=== PATIENT | male | born 1955 | race Two or more races ===

== ENCOUNTER 2018-04-08 21:32 | Inpatient (IN) | payer MEDICAID, OTHER ==
[~2018-04-08] VITALS: Ht 162.6 cm; Wt 48.7 kg
[2018-04-08 22:56] LABS: Hematocrit 46.7 % (41.0-53.0); Hemoglobin 15.5 g/dL (13.5-17.5); Mean Corpuscular Hgb Conc. 33.2 g/dL (32.0-36.0); Mean Corpuscular Volume 90.2 fL (80.0-100.0); Platelet Count (auto) 143 10^3/uL (140-450); Red Blood Cells 5.18 10^6/uL (4.5-5.90); Red Cell Distribution Width 14.3 % (11.8-14.3); White Blood Cell 15.6 10^3/uL (4.4-10.8)
[2018-04-08 22:59] LABS: Basophils % (manual) 0 (0.0-2.0); Blast Cells 0; Eosinophils % (manual) 0 (0-7); Metamyelocytes % 0; Myelocytes % 0; Promyelocytes % 0; Reactive Lymphocytes 0
[2018-04-08 23:00] LABS: Alanine Aminotransferase 123 U/L (16-61); Albumin 3.4 g/dL (3.4-5.0); Alkaline Phosphatase 375 U/L (45-117); Amylase 65 U/L (25-115); Anion Gap 8 (5-15); Aspartate Aminotransferase 154 U/L (15-37); BUN/Creatinine Ratio 9.4; Bilirubin, Total 5.2 mg/dL (0.2-1.0); Blood Urea Nitrogen 9 mg/dL (7-18); Carbon Dioxide 28 mmol/L (21-32); Chloride 105 mmol/L (98-107); GFR African American 101 mL/min; GFR Non-African American 84 mL/min; Glucose 123 mg/dL (74-106); Lipase 48 U/L (73-393); Potassium 3.8 mmol/L (3.5-5.1); Sodium 141 mmol/L (136-145); Total Protein 7.8 g/dL (6.4-8.2)
[2018-04-08 23:21] LABS: Lactic Acid w/Reflex 3.4 mmol/L (0.4-2.0)
[2018-04-08 23:51] LABS: Band Neutrophils % (manual) 13; Lymphocytes % (manual) 6 (10.0-50.0); Monocytes % (manual) 3 (0-12)
[2018-04-09] MEDS ORDERED: metroNIDAZOLE 500MG/100ML 100 ML IV ONE (03:00)
[2018-04-09] MEDS ORDERED: cefTRIAXone 1GM/10ml IVPUSH 10 ML IV ONE (03:00)
[2018-04-09] MEDS ORDERED: SODIUM CHLORIDE 0.9% 1,000 ML IV ONE ×2 (03:00→05:00)
[2018-04-09 08:33] LABS: Urine Bacteria FEW /hpf (None Seen); Urine Blood 2+ /uL (Negative); Urine Specific Gravity 1.021 (1.001-1.035); Urine WBC 2 /hpf (0 - 3)
[2018-04-09 08:39] LABS: Albumin 2.8 g/dL (3.4-5.0); BUN/Creatinine Ratio 13.6; Bilirubin, Total 4.9 mg/dL (0.2-1.0); Calcium 7.8 mg/dL (8.5-10.1); Potassium 3.7 mmol/L (3.5-5.1); Total Protein 6.6 g/dL (6.4-8.2)
[2018-04-09] MEDS: PANTOPRAZOLE 40 MG/10 ML VIAL IV SCH (09:42)
[2018-04-09] MEDS ORDERED: METH10T PO (10:13)
[2018-04-09] MEDS: metroNIDAZOLE 500MG/100ML 100 ML IV SCH ×2 (11:47→20:11)
[2018-04-09 13:00] VITALS: BP 108/44
[2018-04-09] MEDS: MORPHINE SULF INJ 2 MG/ML SYRINGE 1ML IV PRN (13:59)
[2018-04-09] MEDS: HYDROcodone-ACET 5/325MG TAB PO PRN ×2 (15:45→20:17)
[2018-04-09] MEDS: ONDANSETRON HCL 4 MG/2 ML VIAL IV PRN ×2 (15:45→20:17)
[2018-04-09 17:26] VITALS: BP 133/65
[2018-04-09] MEDS: cefTRIAXone 1GM/10ml IVPUSH 10 ML IV SCH (21:46)
[2018-04-09 22:00] VITALS: BP 140/68
[2018-04-10] MEDS: ONDANSETRON HCL 4 MG/2 ML VIAL IV PRN ×4 (01:03→23:44)
[2018-04-10] MEDS: HYDROcodone-ACET 5/325MG TAB PO PRN ×3 (01:05→11:37)
[2018-04-10] MEDS: metroNIDAZOLE 500MG/100ML 100 ML IV SCH ×3 (02:50→18:45)
[2018-04-10 05:44] VITALS: BP 128/82
[2018-04-10 08:15] LABS: Basophils # (auto) 0.1 uL; Basophils % (auto) 0.9 % (0.0-2.0); Eosinophils # (auto) 0 uL; Eosinophils % (auto) 0.3 % (0.0-7.0); Hematocrit 42.7 % (41.0-53.0); Hemoglobin 14.3 g/dL (13.5-17.5); Lymphocytes # (auto) 0.3 uL; Lymphocytes % (auto) 3.4 % (10.0-50.0); Mean Corpuscular Hemoglobin 30.3 pg (28.0-32.0); Mean Corpuscular Hgb Conc. 33.4 g/dL (32.0-36.0); Mean Corpuscular Volume 90.6 fL (80.0-100.0); Monocytes # (auto) 0.7 uL; Monocytes % (auto) 9.2 % (0.0-12.0); Neutrophils % (auto) 86.2 % (37.0-80.0); Nucleated Red Blood Cells % 0.1 %; Platelet Count (auto) 128 10^3/uL (140-450); Red Blood Cells 4.72 10^6/uL (4.5-5.90); Red Cell Distribution Width 14.3 % (11.8-14.3); White Blood Cell 8.1 10^3/uL (4.4-10.8)
[2018-04-10 08:28] LABS: INR 1.07 (0.9-1.15); Partial Thromboplastin Time 25.9 sec (23.78-33.04); Prothrombin Time 11.4 sec (9.27-12.13)
[2018-04-10 08:42] LABS: Albumin 2.9 g/dL (3.4-5.0); BUN/Creatinine Ratio 17.8; Calcium 8.2 mg/dL (8.5-10.1); Potassium 3.5 mmol/L (3.5-5.1); Total Protein 6.8 g/dL (6.4-8.2)
[2018-04-10 08:43] LABS: Albumin 2.9 g/dL (3.4-5.0); Bilirubin, Direct 4.1 mg/dL (0-0.2); Total Protein 6.8 g/dL (6.4-8.2)
[2018-04-10 09:00] VITALS: BP 119/66
[2018-04-10] MEDS: PANTOPRAZOLE 40 MG/10 ML VIAL IV SCH (09:54)
[2018-04-10 13:00] VITALS: BP 117/67
[2018-04-10] MEDS ORDERED: IOHEXOL 300 MG/ML 100ML BOTTLE IJ ONE (13:25)
[2018-04-10] MEDS ORDERED: MIDAZOLAM HCL 1MG/1ML-2 ML VIAL ONE (15:16)
[2018-04-10] MEDS ORDERED: fentaNYL CITRATE 100 MCG/2 ML VL ONE ×2 (15:16→15:54)
[2018-04-10] MEDS ORDERED: PROPOFOL 10 MG/ML 20 ML IV ONE (15:23)
[2018-04-10] MEDS ORDERED: ROCURONIUM 10MG/ML 10ML VIAL IV ONE (15:34)
[2018-04-10] MEDS ORDERED: ONDANSETRON HCL 4 MG/2 ML VIAL IV ONE (16:30)
[2018-04-10] MEDS ORDERED: hydrALAZINE HCL 20 MG/ML VL IV PRN (16:30)
[2018-04-10] MEDS ORDERED: ePHEDrine SULFATE 50 MG/ML AMP IV PRN (16:30)
[2018-04-10] MEDS ORDERED: fentaNYL CITRATE 100 MCG/2 ML VL IV ONE (17:00)
[2018-04-10 22:00] VITALS: BP 126/61
[2018-04-10] MEDS: cefTRIAXone 1GM/10ml IVPUSH 10 ML IV SCH (22:54)
[2018-04-10 23:20] VITALS: BP 126/61
[2018-04-10] MEDS: MORPHINE SULF INJ 2 MG/ML SYRINGE 1ML IV PRN (23:38)
[2018-04-11] MEDS: metroNIDAZOLE 500MG/100ML 100 ML IV SCH ×3 (03:09→17:34)
[2018-04-11] MEDS: ACETAMINOPHEN 325 MG TAB PO PRN (04:58)
[2018-04-11 05:13] VITALS: BP 143/67
[2018-04-11 06:56] LABS: Basophils # (auto) 0.1 uL; Basophils % (auto) 0.8 % (0.0-2.0); Eosinophils # (auto) 0.1 uL; Eosinophils % (auto) 0.9 % (0.0-7.0); Hematocrit 36.7 % (41.0-53.0); Hemoglobin 12.4 g/dL (13.5-17.5); Lymphocytes # (auto) 0.9 uL; Lymphocytes % (auto) 13.5 % (10.0-50.0); Mean Corpuscular Hemoglobin 30.4 pg (28.0-32.0); Mean Corpuscular Hgb Conc. 33.7 g/dL (32.0-36.0); Mean Corpuscular Volume 90.2 fL (80.0-100.0); Monocytes # (auto) 0.8 uL; Monocytes % (auto) 11.5 % (0.0-12.0); Neutrophils % (auto) 73.3 % (37.0-80.0); Nucleated Red Blood Cells % 0.1 %; Platelet Count (auto) 133 10^3/uL (140-450); Red Blood Cells 4.07 10^6/uL (4.5-5.90); Red Cell Distribution Width 14.3 % (11.8-14.3); White Blood Cell 6.8 10^3/uL (4.4-10.8)
[2018-04-11 07:35] LABS: Albumin 2.4 g/dL (3.4-5.0); BUN/Creatinine Ratio 22.2; Bilirubin, Total 3.1 mg/dL (0.2-1.0); Calcium 7.7 mg/dL (8.5-10.1); Potassium 3.2 mmol/L (3.5-5.1); Total Protein 5.9 g/dL (6.4-8.2)
[2018-04-11 09:00] VITALS: BP 125/62
[2018-04-11] MEDS ORDERED: FLUCONAZOLE 200MG/100ML 100 ML IV ONE (09:00)
[2018-04-11] MEDS: PANTOPRAZOLE 40 MG/10 ML VIAL IV SCH (09:01)
[2018-04-11] MEDS: HYDROcodone-ACET 5/325MG TAB PO PRN (09:01)
[2018-04-11] MEDS: ONDANSETRON HCL 4 MG/2 ML VIAL IV PRN (09:01)
[2018-04-11] MEDS ORDERED: METH40TA13 PO (09:45)
[2018-04-11] MEDS ORDERED: FLUC200T50 PO (09:45)
[2018-04-11] MEDS: METHADONE HCL 10 MG TAB PO SCH (10:36)
[2018-04-11] MEDS: POTASSIUM CHL 20 Meq TABLET PO SCH ×2 (10:36→21:21)
[2018-04-11 13:00] VITALS: BP 134/74
[2018-04-11 17:00] VITALS: BP 125/70
[2018-04-11] MEDS: MORPHINE SULF INJ 2 MG/ML SYRINGE 1ML IV PRN (21:20)
[2018-04-11] MEDS: cefTRIAXone 1GM/10ml IVPUSH 10 ML IV SCH (21:21)
[2018-04-11 22:00] VITALS: BP 143/75
[2018-04-12] MEDS: SODIUM CHLORIDE 0.9% 1,000 ML IV SCH ×2 (01:54→10:05)
[2018-04-12] MEDS: metroNIDAZOLE 500MG/100ML 100 ML IV SCH ×3 (03:42→17:46)
[2018-04-12 05:34] VITALS: BP 139/78
[2018-04-12 08:00] VITALS: BP 138/76
[2018-04-12] MEDS: FLUCONAZOLE 100 MG TAB PO SCH (09:27)
[2018-04-12] MEDS: PANTOPRAZOLE 40 MG/10 ML VIAL IV SCH (09:28)
[2018-04-12] MEDS: METHADONE HCL 10 MG TAB PO SCH (10:01)
[2018-04-12 12:00] VITALS: BP 157/73
[2018-04-12] MEDS: Ensure HIGH Protein Chocolate 8oz Bottle PO SCH ×2 (12:08→17:50)
[2018-04-12 14:17] LABS: Basophils # (auto) 0.1 uL; Eosinophils # (auto) 0.1 uL; Eosinophils % (auto) 2.4 % (0.0-7.0); Lymphocytes # (auto) 1.5 uL; Mean Corpuscular Hemoglobin 29.6 pg (28.0-32.0); Mean Corpuscular Hgb Conc. 32.5 g/dL (32.0-36.0); Mean Corpuscular Volume 91.1 fL (80.0-100.0); Monocytes # (auto) 0.7 uL; Monocytes % (auto) 12.3 % (0.0-12.0); Neutrophils # (auto) 3.3 uL; Neutrophils % (auto) 58.3 % (37.0-80.0); Platelet Count (auto) 152 10^3/uL (140-450); Red Blood Cells 4.72 10^6/uL (4.5-5.90); Red Cell Distribution Width 14.1 % (11.8-14.3); White Blood Cell 5.7 10^3/uL (4.4-10.8)
[2018-04-12 14:42] LABS: BUN/Creatinine Ratio 12.9; Calcium 8.3 mg/dL (8.5-10.1); Potassium 3.9 mmol/L (3.5-5.1)
[2018-04-12 16:00] VITALS: BP 140/77
[2018-04-12] MEDS: cefTRIAXone 1GM/10ml IVPUSH 10 ML IV SCH (21:22)
[2018-04-12 22:00] VITALS: BP 143/73
[2018-04-13] MEDS: ACETAMINOPHEN 325 MG TAB PO PRN (01:48)
[2018-04-13] MEDS: SODIUM CHLORIDE 0.9% 1,000 ML IV SCH ×2 (02:56→17:15)
[2018-04-13] MEDS: metroNIDAZOLE 500MG/100ML 100 ML IV SCH ×3 (02:56→19:57)
[2018-04-13 05:45] VITALS: BP 119/59
[2018-04-13 07:14] LABS: Basophils # (auto) 0 uL; Basophils % (auto) 0.9 % (0.0-2.0); Eosinophils # (auto) 0.3 uL; Eosinophils % (auto) 4.9 % (0.0-7.0); Hematocrit 46.9 % (41.0-53.0); Hemoglobin 15.9 g/dL (13.5-17.5); Lymphocytes # (auto) 1.7 uL; Lymphocytes % (auto) 32.2 % (10.0-50.0); Mean Corpuscular Hemoglobin 30.7 pg (28.0-32.0); Mean Corpuscular Hgb Conc. 33.9 g/dL (32.0-36.0); Mean Corpuscular Volume 90.7 fL (80.0-100.0); Monocytes # (auto) 0.6 uL; Monocytes % (auto) 11.8 % (0.0-12.0); Neutrophils # (auto) 2.7 uL; Neutrophils % (auto) 50.2 % (37.0-80.0); Nucleated Red Blood Cells % 0.1 %; Platelet Count (auto) 158 10^3/uL (140-450); Red Blood Cells 5.17 10^6/uL (4.5-5.90); Red Cell Distribution Width 14.1 % (11.8-14.3); White Blood Cell 5.4 10^3/uL (4.4-10.8)
[2018-04-13 07:40] LABS: BUN/Creatinine Ratio 10.8; Calcium 8.8 mg/dL (8.5-10.1); Potassium 3.9 mmol/L (3.5-5.1)
[2018-04-13 07:58] LABS: Albumin 3.2 g/dL (3.4-5.0); Bilirubin, Direct 1.1 mg/dL (0-0.2); Bilirubin, Total 1.5 mg/dL (0.2-1.0)
[2018-04-13] MEDS: Ensure HIGH Protein Chocolate 8oz Bottle PO SCH ×3 (08:00→18:00)
[2018-04-13] MEDS: MORPHINE SULF INJ 2 MG/ML SYRINGE 1ML IV PRN ×3 (08:10→20:27)
[2018-04-13 09:00] VITALS: BP 125/67
[2018-04-13 09:43] LABS: Hepatitis B Surface Antigen Negative (Negative)
[2018-04-13] MEDS: PANTOPRAZOLE 40 MG/10 ML VIAL IV SCH (09:45)
[2018-04-13] MEDS: HYDROcodone-ACET 5/325MG TAB PO PRN ×2 (09:46→16:17)
[2018-04-13] MEDS: METHADONE HCL 10 MG TAB PO SCH (09:46)
[2018-04-13] MEDS: FLUCONAZOLE 100 MG TAB PO SCH (09:46)
[2018-04-13 09:53] LABS: Hepatitis A Ab IgM Negative; Hepatitis B Core IgM Negative
[2018-04-13 09:56] LABS: Hepatitis C Antibody Positive (Negative)
[2018-04-13 13:00] VITALS: BP 142/64
[2018-04-13 17:00] VITALS: BP 137/66
[2018-04-13] MEDS: cefTRIAXone 1GM/10ml IVPUSH 10 ML IV SCH (21:14)
[2018-04-13 22:00] VITALS: BP 147/57
[2018-04-13] MEDS ORDERED: TEMAZEPAM 15 MG CAP PO ONE (22:15)
[2018-04-14] MEDS: metroNIDAZOLE 500MG/100ML 100 ML IV SCH ×3 (02:54→19:24)
[2018-04-14 05:00] VITALS: BP 127/76
[2018-04-14 06:19] LABS: Basophils # (auto) 0.1 uL; Basophils % (auto) 1.6 % (0.0-2.0); Eosinophils # (auto) 0.4 uL; Eosinophils % (auto) 6.3 % (0.0-7.0); Hematocrit 41.5 % (41.0-53.0); Lymphocytes # (auto) 1.6 uL; Mean Corpuscular Hemoglobin 30.4 pg (28.0-32.0); Mean Corpuscular Hgb Conc. 33.8 g/dL (32.0-36.0); Monocytes # (auto) 0.8 uL; Monocytes % (auto) 13.1 % (0.0-12.0); Neutrophils # (auto) 3.2 uL; Platelet Count (auto) 169 10^3/uL (140-450); Red Blood Cells 4.61 10^6/uL (4.5-5.90)
[2018-04-14] MEDS: MORPHINE SULF INJ 2 MG/ML SYRINGE 1ML IV PRN ×4 (06:33→23:37)
[2018-04-14] MEDS: SODIUM CHLORIDE 0.9% 1,000 ML IV SCH ×2 (06:33→21:08)
[2018-04-14 06:39] LABS: BUN/Creatinine Ratio 11.9; Calcium 8.1 mg/dL (8.5-10.1); Potassium 3.5 mmol/L (3.5-5.1)
[2018-04-14 06:47] LABS: Albumin 2.7 g/dL (3.4-5.0); Bilirubin, Direct 0.7 mg/dL (0-0.2); Total Protein 6.5 g/dL (6.4-8.2)
[2018-04-14] MEDS: Ensure HIGH Protein Chocolate 8oz Bottle PO SCH ×3 (08:00→18:00)
[2018-04-14 08:56] VITALS: BP 128/73
[2018-04-14] MEDS: HYDROcodone-ACET 5/325MG TAB PO PRN ×2 (09:30→16:11)
[2018-04-14] MEDS: PANTOPRAZOLE 40 MG/10 ML VIAL IV SCH (09:51)
[2018-04-14] MEDS: FLUCONAZOLE 100 MG TAB PO SCH (09:52)
[2018-04-14] MEDS: METHADONE HCL 10 MG TAB PO SCH (09:53)
[2018-04-14 12:35] VITALS: BP 141/80
[2018-04-14 18:05] VITALS: BP 123/76
[2018-04-14] MEDS: cefTRIAXone 1GM/10ml IVPUSH 10 ML IV SCH (21:07)
[2018-04-14 22:00] VITALS: BP 129/74
[2018-04-15] MEDS: metroNIDAZOLE 500MG/100ML 100 ML IV SCH ×3 (02:51→19:30)
[2018-04-15] MEDS: MORPHINE SULF INJ 2 MG/ML SYRINGE 1ML IV PRN ×5 (03:44→22:15)
[2018-04-15 05:00] VITALS: BP 113/70
[2018-04-15 07:54] VITALS: BP 127/69
[2018-04-15] MEDS: Ensure HIGH Protein Chocolate 8oz Bottle PO SCH ×4 (08:00→20:12)
[2018-04-15] MEDS: PANTOPRAZOLE 40 MG/10 ML VIAL IV SCH (10:01)
[2018-04-15] MEDS: FLUCONAZOLE 100 MG TAB PO SCH (10:01)
[2018-04-15] MEDS: SODIUM CHLORIDE 0.9% 1,000 ML IV SCH ×2 (10:01→20:12)
[2018-04-15] MEDS: METHADONE HCL 10 MG TAB PO SCH (10:02)
[2018-04-15 11:53] VITALS: BP 124/76
[2018-04-15 17:00] VITALS: BP 114/63
[2018-04-15] MEDS: HYDROcodone-ACET 5/325MG TAB PO PRN (20:44)
[2018-04-15] MEDS: cefTRIAXone 1GM/10ml IVPUSH 10 ML IV SCH (21:00)
[2018-04-15 21:58] VITALS: BP 130/64
[2018-04-16] MEDS: metroNIDAZOLE 500MG/100ML 100 ML IV SCH ×3 (03:00→18:22)
[2018-04-16] MEDS: HYDROcodone-ACET 5/325MG TAB PO PRN (04:02)
[2018-04-16 05:00] VITALS: BP 102/51
[2018-04-16] MEDS: MORPHINE SULF INJ 2 MG/ML SYRINGE 1ML IV PRN ×4 (07:41→23:50)
[2018-04-16] MEDS: PANTOPRAZOLE 40 MG/10 ML VIAL IV SCH (10:23)
[2018-04-16] MEDS: METHADONE HCL 10 MG TAB PO SCH (10:24)
[2018-04-16] MEDS: FLUCONAZOLE 100 MG TAB PO SCH (10:24)
[2018-04-16] MEDS: Ensure HIGH Protein Chocolate 8oz Bottle PO SCH ×2 (12:27→18:22)
[2018-04-16] MEDS: SODIUM CHLORIDE 0.9% 1,000 ML IV SCH (12:27)
[2018-04-16 13:00] VITALS: BP 141/71
[2018-04-16 17:00] VITALS: BP 145/78
[2018-04-16] MEDS: cefTRIAXone 1GM/10ml IVPUSH 10 ML IV SCH (21:04)
[2018-04-16 22:00] VITALS: BP 122/69
[2018-04-17] MEDS: MORPHINE SULF INJ 2 MG/ML SYRINGE 1ML IV PRN (04:31)
[2018-04-17] MEDS: metroNIDAZOLE 500MG/100ML 100 ML IV SCH ×3 (04:32→19:00)
[2018-04-17] MEDS: SODIUM CHLORIDE 0.9% 1,000 ML IV SCH ×2 (04:32→14:35)
[2018-04-17 05:00] VITALS: BP 118/62
[2018-04-17 08:00] VITALS: BP 130/73
[2018-04-17] MEDS: Ensure HIGH Protein Chocolate 8oz Bottle PO SCH ×3 (08:00→18:00)
[2018-04-17 10:09] LABS: Albumin 2.7 g/dL (3.4-5.0); BUN/Creatinine Ratio 11.6; Bilirubin, Total 0.8 mg/dL (0.2-1.0); Calcium 8.2 mg/dL (8.5-10.1); Potassium 3.9 mmol/L (3.5-5.1)
[2018-04-17] MEDS: PANTOPRAZOLE 40 MG/10 ML VIAL IV SCH (10:41)
[2018-04-17] MEDS: METHADONE HCL 10 MG TAB PO SCH (10:42)
[2018-04-17] MEDS: FLUCONAZOLE 100 MG TAB PO SCH (10:43)
[2018-04-17 12:00] VITALS: BP 126/75
[2018-04-17 13:10] LABS: Hematocrit 39.7 % (41.0-53.0); Hemoglobin 13.2 g/dL (13.5-17.5); Mean Corpuscular Hemoglobin 30.1 pg (28.0-32.0); Mean Corpuscular Hgb Conc. 33.4 g/dL (32.0-36.0); Mean Corpuscular Volume 90.1 fL (80.0-100.0); Platelet Count (auto) 276 10^3/uL (140-450); Red Cell Distribution Width 14.3 % (11.8-14.3); White Blood Cell 5.8 10^3/uL (4.4-10.8)
[2018-04-17 13:18] LABS: Basophils % (manual) 0 (0.0-2.0); Blast Cells 0; Metamyelocytes % 0; Myelocytes % 0; Promyelocytes % 0; Reactive Lymphocytes 0
[2018-04-17 14:10] LABS: Band Neutrophils % (manual) 2; Eosinophils % (manual) 3 (0-7); Lymphocytes % (manual) 19 (10.0-50.0); Monocytes % (manual) 7 (0-12)
[2018-04-17 14:44] LABS: INR 1.06 (0.9-1.15); Partial Thromboplastin Time 27.7 sec (23.78-33.04); Prothrombin Time 11.3 sec (9.27-12.13)
[2018-04-17] MEDS ORDERED: BUPIVACAINE 0.25% INJ 50ML VIAL ONE (16:18)
[2018-04-17 17:00] VITALS: BP 126/73
[2018-04-17] MEDS ORDERED: MIDAZOLAM HCL 1MG/1ML-2 ML VIAL ONE (18:40)
[2018-04-17] MEDS ORDERED: fentaNYL CITRATE 100 MCG/2 ML VL ONE (18:40)
[2018-04-17] MEDS ORDERED: PROPOFOL 10 MG/ML 20 ML IV ONE (18:40)
[2018-04-17] MEDS ORDERED: ROCURONIUM 10MG/ML 10ML VIAL IV ONE (18:41)
[2018-04-17] MEDS ORDERED: fentaNYL CITRATE 5 ML ONE (19:13)
[2018-04-17] MEDS: cefTRIAXone 1GM/10ml IVPUSH 10 ML IV SCH (21:00)
[2018-04-17] MEDS ORDERED: HYDROmorphone HCL 2 MG/ML VL ONE (21:51)
[2018-04-17] MEDS: HYDROmorphone HCL 2 MG/ML VL IV PRN ×4 (21:57→22:21)
[2018-04-17] MEDS ORDERED: KETOROLAC TROMETH 30 MG/ML 1ML VIAL ONE (22:30)
[2018-04-17] MEDS ORDERED: KETOROLAC TROMETH 30 MG/ML 1ML VIAL IV ONE (22:30)
[2018-04-17 23:15] VITALS: BP 164/79
[2018-04-18] VITALS (7 sets, daily range): BP systolic 137–164; BP diastolic 71–86
[2018-04-18] MEDS: MORPHINE SULF INJ 2 MG/ML SYRINGE 1ML IV PRN (00:35)
[2018-04-18] MEDS ORDERED: KETOROLAC TROMETH 30 MG/ML 1ML VIAL IV ONE (02:15)
[2018-04-18] MEDS: metroNIDAZOLE 500MG/100ML 100 ML IV SCH ×3 (03:45→18:50)
[2018-04-18] MEDS: SODIUM CHLORIDE 0.9% 1,000 ML IV SCH ×2 (03:46→15:01)
[2018-04-18] MEDS: Ensure HIGH Protein Chocolate 8oz Bottle PO SCH ×3 (08:27→18:00)
[2018-04-18] MEDS: HYDROmorphone HCL 2 MG/ML VL IV PRN ×4 (08:27→23:00)
[2018-04-18] MEDS: FLUCONAZOLE 100 MG TAB PO SCH (10:06)
[2018-04-18] MEDS: PANTOPRAZOLE 40 MG/10 ML VIAL IV SCH (10:06)
[2018-04-18] MEDS: METHADONE HCL 10 MG TAB PO SCH (10:07)
[2018-04-18] MEDS: HYDROcodone-ACET 5/325MG TAB PO PRN (15:49)
[2018-04-18] MEDS: cefTRIAXone 1GM/10ml IVPUSH 10 ML IV SCH (22:14)
[2018-04-19] VITALS (7 sets, daily range): BP systolic 124–157; BP diastolic 74–86
[2018-04-19] MEDS: HYDROcodone-ACET 5/325MG TAB PO PRN (01:26)
[2018-04-19] MEDS: HYDROmorphone HCL 2 MG/ML VL IV PRN ×5 (03:04→19:49)
[2018-04-19] MEDS: metroNIDAZOLE 500MG/100ML 100 ML IV SCH ×3 (03:04→18:35)
[2018-04-19] MEDS: SODIUM CHLORIDE 0.9% 1,000 ML IV SCH ×2 (07:34→23:50)
[2018-04-19 07:40] LABS: Basophils # (auto) 0.1 uL; Basophils % (auto) 0.6 % (0.0-2.0); Eosinophils # (auto) 0 uL; Eosinophils % (auto) 0.4 % (0.0-7.0); Hematocrit 40.1 % (41.0-53.0); Hemoglobin 13.2 g/dL (13.5-17.5); Lymphocytes # (auto) 1.3 uL; Lymphocytes % (auto) 10.5 % (10.0-50.0); Mean Corpuscular Hemoglobin 30.1 pg (28.0-32.0); Mean Corpuscular Hgb Conc. 32.8 g/dL (32.0-36.0); Mean Corpuscular Volume 91.7 fL (80.0-100.0); Monocytes # (auto) 1.1 uL; Monocytes % (auto) 8.9 % (0.0-12.0); Neutrophils # (auto) 9.5 uL; Neutrophils % (auto) 79.6 % (37.0-80.0); Nucleated Red Blood Cells % 0.1 %; Platelet Count (auto) 302 10^3/uL (140-450); Red Blood Cells 4.38 10^6/uL (4.5-5.90); Red Cell Distribution Width 14.8 % (11.8-14.3)
[2018-04-19 07:48] LABS: Albumin 2.6 g/dL (3.4-5.0); Calcium 7.9 mg/dL (8.5-10.1); Magnesium 2.2 mg/dL (1.6-2.6); Potassium 3.8 mmol/L (3.5-5.1)
[2018-04-19 07:49] LABS: BUN/Creatinine Ratio 13.6
[2018-04-19 07:51] LABS: Bilirubin, Total 0.9 mg/dL (0.2-1.0); Total Protein 6.7 g/dL (6.4-8.2)
[2018-04-19] MEDS: Ensure HIGH Protein Chocolate 8oz Bottle PO SCH ×3 (08:00→18:00)
[2018-04-19] MEDS: PANTOPRAZOLE 40 MG/10 ML VIAL IV SCH (10:06)
[2018-04-19] MEDS: METHADONE HCL 10 MG TAB PO SCH (10:07)
[2018-04-19] MEDS: FLUCONAZOLE 100 MG TAB PO SCH (10:07)
[2018-04-19] MEDS: cefTRIAXone 1GM/10ml IVPUSH 10 ML IV SCH (22:06)
[2018-04-20] VITALS (7 sets, daily range): BP systolic 126–157; BP diastolic 73–83
[2018-04-20] MEDS: HYDROmorphone HCL 2 MG/ML VL IV PRN ×6 (00:18→23:35)
[2018-04-20] MEDS: HYDROcodone-ACET 5/325MG TAB PO PRN (02:50)
[2018-04-20] MEDS: metroNIDAZOLE 500MG/100ML 100 ML IV SCH ×3 (04:02→19:16)
[2018-04-20 06:55] LABS: Basophils # (auto) 0.1 uL; Basophils % (auto) 0.5 % (0.0-2.0); Eosinophils # (auto) 0.2 uL; Eosinophils % (auto) 1.8 % (0.0-7.0); Hematocrit 39.6 % (41.0-53.0); Lymphocytes # (auto) 1.4 uL; Lymphocytes % (auto) 12.4 % (10.0-50.0); Mean Corpuscular Hemoglobin 29.9 pg (28.0-32.0); Mean Corpuscular Hgb Conc. 32.7 g/dL (32.0-36.0); Mean Corpuscular Volume 91.3 fL (80.0-100.0); Monocytes # (auto) 1.2 uL; Monocytes % (auto) 10.2 % (0.0-12.0); Neutrophils # (auto) 8.5 uL; Neutrophils % (auto) 75.1 % (37.0-80.0); Nucleated Red Blood Cells % 0.1 %; Platelet Count (auto) 335 10^3/uL (140-450); Red Blood Cells 4.33 10^6/uL (4.5-5.90); Red Cell Distribution Width 14.6 % (11.8-14.3); White Blood Cell 11.3 10^3/uL (4.4-10.8)
[2018-04-20] MEDS: Ensure HIGH Protein Chocolate 8oz Bottle PO SCH ×3 (08:29→19:16)
[2018-04-20] MEDS: METHADONE HCL 10 MG TAB PO SCH (09:38)
[2018-04-20] MEDS: PANTOPRAZOLE 40 MG/10 ML VIAL IV SCH (09:38)
[2018-04-20] MEDS: FLUCONAZOLE 100 MG TAB PO SCH (09:38)
[2018-04-20] MEDS: SODIUM CHLORIDE 0.9% 1,000 ML IV SCH (16:04)
[2018-04-20] MEDS: cefTRIAXone 1GM/10ml IVPUSH 10 ML IV SCH (22:33)
[2018-04-21] MEDS: HYDROmorphone HCL 2 MG/ML VL IV PRN ×2 (03:40→11:41)
[2018-04-21] MEDS: metroNIDAZOLE 500MG/100ML 100 ML IV SCH ×2 (03:40→10:19)
[2018-04-21 05:00] VITALS: BP 128/71
[2018-04-21 06:58] LABS: Basophils # (auto) 0.1 uL; Basophils % (auto) 1.2 % (0.0-2.0); Eosinophils # (auto) 0.2 uL; Hematocrit 37.6 % (41.0-53.0); Hemoglobin 12.6 g/dL (13.5-17.5); Lymphocytes # (auto) 1.7 uL; Lymphocytes % (auto) 17.7 % (10.0-50.0); Mean Corpuscular Hemoglobin 30.3 pg (28.0-32.0); Mean Corpuscular Hgb Conc. 33.6 g/dL (32.0-36.0); Mean Corpuscular Volume 90.2 fL (80.0-100.0); Monocytes % (auto) 9.9 % (0.0-12.0); Neutrophils # (auto) 6.6 uL; Neutrophils % (auto) 69.2 % (37.0-80.0); Platelet Count (auto) 376 10^3/uL (140-450); Red Blood Cells 4.16 10^6/uL (4.5-5.90); Red Cell Distribution Width 14.3 % (11.8-14.3); White Blood Cell 9.6 10^3/uL (4.4-10.8)
[2018-04-21 07:11] LABS: BUN/Creatinine Ratio 14.3; Calcium 8.1 mg/dL (8.5-10.1); Potassium 3.4 mmol/L (3.5-5.1)
[2018-04-21 08:00] VITALS: BP 116/71
[2018-04-21] MEDS: Ensure HIGH Protein Chocolate 8oz Bottle PO SCH ×3 (08:00→18:00)
[2018-04-21 09:00] VITALS: BP 116/71
[2018-04-21] MEDS: FLUCONAZOLE 100 MG TAB PO SCH (10:13)
[2018-04-21] MEDS: SODIUM CHLORIDE 0.9% 1,000 ML IV SCH (10:13)
[2018-04-21] MEDS: PANTOPRAZOLE 40 MG/10 ML VIAL IV SCH (10:13)
[2018-04-21] MEDS: METHADONE HCL 10 MG TAB PO SCH (10:14)
[2018-04-21] MEDS: ONDANSETRON HCL 4 MG/2 ML VIAL IV PRN ×2 (11:40→19:10)
[2018-04-21 13:00] VITALS: BP 144/79
[2018-04-21] MEDS ORDERED: LACTULOSE 20Gm/30ML SOLN PO ONE (13:45)
[2018-04-21 16:25] VITALS: BP 149/88
[2018-04-21] MEDS: HYDROcodone-ACET 5/325MG TAB PO PRN (19:11)
[2018-04-21 22:00] VITALS: BP 127/81
[2018-04-21] MEDS: SENNA 8.6 MG TAB PO PRN (22:18)
[2018-04-21] MEDS: DOCUSATE SOD 100 MG CAP PO SCH (22:18)
[2018-04-22] MEDS: HYDROcodone-ACET 5/325MG TAB PO PRN ×5 (00:45→20:50)
[2018-04-22] MEDS: SODIUM CHLORIDE 0.9% 1,000 ML IV SCH ×2 (02:52→18:09)
[2018-04-22 05:00] VITALS: BP 138/80
[2018-04-22 07:37] LABS: Basophils # (auto) 0.1 uL; Basophils % (auto) 1.5 % (0.0-2.0); Eosinophils # (auto) 0.3 uL; Eosinophils % (auto) 4.6 % (0.0-7.0); Hematocrit 36.7 % (41.0-53.0); Hemoglobin 12.4 g/dL (13.5-17.5); Lymphocytes # (auto) 1.8 uL; Lymphocytes % (auto) 26.2 % (10.0-50.0); Mean Corpuscular Hemoglobin 30.5 pg (28.0-32.0); Mean Corpuscular Hgb Conc. 33.7 g/dL (32.0-36.0); Mean Corpuscular Volume 90.4 fL (80.0-100.0); Monocytes # (auto) 0.9 uL; Monocytes % (auto) 12.5 % (0.0-12.0); Neutrophils # (auto) 3.9 uL; Neutrophils % (auto) 55.2 % (37.0-80.0); Nucleated Red Blood Cells % 0.1 %; Platelet Count (auto) 352 10^3/uL (140-450); Red Blood Cells 4.06 10^6/uL (4.5-5.90); Red Cell Distribution Width 14.1 % (11.8-14.3)
[2018-04-22] MEDS: Ensure HIGH Protein Chocolate 8oz Bottle PO SCH ×3 (08:00→18:09)
[2018-04-22 08:06] LABS: BUN/Creatinine Ratio 15.7; Calcium 8.2 mg/dL (8.5-10.1); Potassium 3.2 mmol/L (3.5-5.1)
[2018-04-22 08:50] VITALS: BP 147/73
[2018-04-22] MEDS: DOCUSATE SOD 100 MG CAP PO SCH ×2 (09:26→22:28)
[2018-04-22] MEDS: FLUCONAZOLE 100 MG TAB PO SCH (09:26)
[2018-04-22] MEDS: PANTOPRAZOLE 40 MG/10 ML VIAL IV SCH (09:26)
[2018-04-22] MEDS: METHADONE HCL 10 MG TAB PO SCH (09:27)
[2018-04-22] MEDS ORDERED: MAGNESIUM CITRATE SOLUTION 300 ML BTL PO ONE (09:30)
[2018-04-22] MEDS: ONDANSETRON HCL 4 MG/2 ML VIAL IV PRN (12:13)
[2018-04-22 12:38] VITALS: BP 154/85
[2018-04-22 17:04] VITALS: BP 129/76
[2018-04-22 22:00] VITALS: BP 140/80
[2018-04-22] MEDS: SENNA 8.6 MG TAB PO PRN (22:29)
[2018-04-23] MEDS ORDERED: FLEET ENEMA(ADULT) 135 ML PR ONE ×2 (00:15)
[2018-04-23] MEDS: HYDROcodone-ACET 5/325MG TAB PO PRN ×2 (01:38→06:07)
[2018-04-23 05:00] VITALS: BP 132/66
[2018-04-23 07:16] LABS: Basophils # (auto) 0.1 uL; Basophils % (auto) 1.4 % (0.0-2.0); Eosinophils # (auto) 0.2 uL; Eosinophils % (auto) 2.3 % (0.0-7.0); Hemoglobin 12.1 g/dL (13.5-17.5); Lymphocytes # (auto) 1.6 uL; Lymphocytes % (auto) 21.2 % (10.0-50.0); Mean Corpuscular Hemoglobin 29.8 pg (28.0-32.0); Mean Corpuscular Hgb Conc. 32.6 g/dL (32.0-36.0); Mean Corpuscular Volume 91.3 fL (80.0-100.0); Monocytes # (auto) 0.9 uL; Monocytes % (auto) 11.7 % (0.0-12.0); Neutrophils # (auto) 4.8 uL; Neutrophils % (auto) 63.4 % (37.0-80.0); Platelet Count (auto) 334 10^3/uL (140-450); Red Blood Cells 4.06 10^6/uL (4.5-5.90); White Blood Cell 7.6 10^3/uL (4.4-10.8)
[2018-04-23 07:52] LABS: Calcium 8.1 mg/dL (8.5-10.1); Potassium 3.5 mmol/L (3.5-5.1)
[2018-04-23] MEDS: Ensure HIGH Protein Chocolate 8oz Bottle PO SCH ×2 (08:00→12:00)
[2018-04-23 08:14] VITALS: BP 145/85
[2018-04-23] MEDS: DOCUSATE SOD 100 MG CAP PO SCH (09:44)
[2018-04-23] MEDS: PANTOPRAZOLE 40 MG/10 ML VIAL IV SCH (09:44)
[2018-04-23] MEDS: FLUCONAZOLE 100 MG TAB PO SCH (09:45)
[2018-04-23] MEDS: METHADONE HCL 10 MG TAB PO SCH (09:45)
[2018-04-23] MEDS: SODIUM CHLORIDE 0.9% 1,000 ML IV SCH (11:10)
== END 2018-04-23 12:40 | disposition home or self-care (01) | DRG 710 ==
LOC: EDBD 21:32 → ER 21:36 → OVERFLOW 21:37 → EAST 04-09 09:57
PROVIDERS: ADMIT Nurse Practitioner; ATTEND Internal Medicine
PROC: 0F798DZ Dilation of Common Bile Duct with Intraluminal Device, Via Natural or Artificial Opening Endoscopic (ICD-10-PCS; 2018-04-10)
PROC: BF111ZZ Fluoroscopy of Biliary and Pancreatic Ducts using Low Osmolar Contrast (ICD-10-PCS; principal; 2018-04-10 13:15)
PROC: 0FT40ZZ Resection of Gallbladder, Open Approach (ICD-10-PCS; 2018-04-17)
DX: A41.9 Sepsis, unspecified organism (principal); E43 Unspecified severe protein-calorie malnutrition; K83.0 Cholangitis; G91.9 Hydrocephalus, unspecified; B45.9 Cryptococcosis, unspecified; K80.63 Calculus of gallbladder and bile duct with acute cholecystitis with obstruction; B19.20 Unspecified viral hepatitis C without hepatic coma; E87.6 Hypokalemia
CPT/HCPCS: 36415; 70450; 71045; 74018; 74176; 74181; 76000; 78226; 80048; 80053; 80074; 80076; 81001; 82150; 82247; 83605; 83690; 83735; 84484; 85007; 85025; 85027; 85610; 85730; 86703; 86850; 86900; 86901; 93005; 96361; 96365; 96375; A6257; C9113; J0696; J1450; J1885; J2250; J2405; J2704; J3490